=== PATIENT | female | born 1980 | race Caucasian/White ===

== ENCOUNTER → 2017-09-16 | Outpatient (REF) | payer OTHER ==
[2017-09-16 12:08] LABS: BASO % 0.5 % (0.0-1.0); EOS # 0.1 10^3/uL (0.0-0.50); EOS % 1.7 % (0.0-3.0); HEMOGLOBIN 12.2 g/dl (12.0-16.0); IMMATURE GRANULOCYTE % 0.2 % (0-0); LYMPH # 1.6 10^3/uL (1.5-4.5); LYMPH % 37.2 % (24.0-44.0); MEAN CORPUSCULAR HEMOGLOBIN 31.1 pg (27.0-33.0); MEAN CORPUSCULAR VOLUME 94.4 fl (80.0-96.0); MONO # 0.3 10^3/uL (0.0-0.8); MONO % 6.4 % (0.0-5.0); NEUTROPHILS # 2.3 10^3/uL (1.8-7.7); PLATELET COUNT, AUTOMATED 229 10^3/uL (150-450); RED BLOOD COUNT 3.92 10^6/uL (4.00-5.40); RED CELL DISTRIBUTION WIDTH 12.3 % (11.5-14.5); WHITE BLOOD COUNT 4.2 10^3/uL (4.0-10.0)
[2017-09-16 12:32] LABS: ALBUMIN 4.4 GM/DL (3.2-5.2); ALBUMIN/GLOBULIN RATIO 1.38 (1.00-1.93); ALKALINE PHOSPHATASE 51 U/L (45-117); ALT/SGPT 18 U/L (12-78); ANION GAP 7 MEQ/L (8-16); AST/SGOT 13 U/L (7-37); BILIRUBIN,TOTAL 0.4 MG/DL (0.2-1.0); BLOOD UREA NITROGEN 16 MG/DL (7-18); CALCIUM LEVEL 9.2 MG/DL (8.5-10.1); CARBON DIOXIDE LEVEL 28 MEQ/L (21-32); CHLORIDE LEVEL 103 MEQ/L (98-107); CREATININE FOR GFR 0.78 MG/DL (0.55-1.02); GLOMERULAR FILTRATION RATE > 60.0 (>60); GLUCOSE, FASTING 87 MG/DL (70-105); POTASSIUM SERUM 3.9 MEQ/L (3.5-5.1); SODIUM LEVEL 138 MEQ/L (136-145); TOTAL PROTEIN 7.6 GM/DL (6.4-8.2)
== END ==
LOC: M LABDRAW1 09:26
DX: Z51.81 Encounter for therapeutic drug level monitoring (principal); Z79.899 Other long term (current) drug therapy

== ENCOUNTER → 2018-01-22 | Outpatient (CLI) | payer OTHER ==
[2018-01-22 19:38] LABS: BASO % 0.5 % (0.0-1.0); EOS # 0.1 10^3/uL (0.0-0.50); EOS % 1.5 % (0.0-3.0); HEMATOCRIT 38.5 % (36.0-47.0); HEMOGLOBIN 13.1 g/dl (12.0-15.5); IMMATURE GRANULOCYTE % 0.2 % (0-3.0); LYMPH # 2.5 10^3/uL (1.5-4.5); LYMPH % 42.1 % (24.0-44.0); MEAN CORPUSCULAR VOLUME 93.9 fl (80.0-96.0); MONO # 0.4 10^3/uL (0.0-0.8); MONO % 6.8 % (0.0-5.0); NEUTROPHILS % 48.9 % (36.0-66.0); PLATELET COUNT, AUTOMATED 246 10^3/uL (150-450); RED CELL DISTRIBUTION WIDTH 11.9 % (11.5-14.5)
[2018-01-22 19:46] LABS: URIC ACID 5.5 MG/DL (2.6-6.0)
== END ==
LOC: M WUC 17:03
DX: M79.674 Pain in right toe(s) (principal)
CPT/HCPCS: 84550

== ENCOUNTER → 2018-08-11 | Outpatient (REF) | payer OTHER, SELFPAY ==
[2018-08-11 13:00] LABS: RHEUMATOID FACTOR QUANT < 10.0 IU/ML (<15.0)
[2018-08-11 14:03] LABS: ERYTHROCYTE SEDIMENTATION RATE 13 mm/hr (0-20)
[2018-08-14 00:07] LABS: CYCLIC CITRULLINATED PEPTIDE 6 units (0-19)
[2018-08-14 00:07] LABS: ANTINUCLEAR ANTIBODIES DIRECT Negative (Negative); Lyme Disease IgG/IgM Antibodie <0.91 ISR (0.00-0.90); Lyme Disease IgM Ab Quantitati <0.80 index (0.00-0.79)
== END ==
LOC: M LABDRAW1 11:25
DX: M25.50 Pain in unspecified joint (principal)
CPT/HCPCS: 36415

== ENCOUNTER 2019-06-05 21:37 | Emergency (ER) | payer BC ==
[~2019-06-05] VITALS: Ht 160 cm; Wt 63.6 kg
[2019-06-05 21:37] VITALS: BP 136/77
[2019-06-05] MEDS ORDERED: SUMA50TA2 (21:46)
[2019-06-05] MEDS ORDERED: TOPI25TA10 (21:46)
[2019-06-05] MEDS ORDERED: ADACEL/BOOSTRIX VACCINE (DIPHTH/PERTUSS/ACELL/TETANUS)0.5ML SYR (90715) IM ONE (22:00)
[2019-06-05] MEDS ORDERED: DERMABOND TOPICAL SKIN ADHESIVE TOP ONE (22:00)
== END 2019-06-05 22:29 | disposition home or self-care (01) ==
LOC: M ED 21:37
DX: S61.210A Laceration without foreign body of right index finger without damage to nail, initial encounter (principal); W26.8XXA Contact with other sharp object(s), not elsewhere classified, initial encounter; Y92.099 Unspecified place in other non-institutional residence as the place of occurrence of the external cause; Y93.9 Activity, unspecified; Y99.9 Unspecified external cause status; Z79.899 Other long term (current) drug therapy

== ENCOUNTER 2019-07-23 10:54 | Emergency (ER) | payer BC ==
[~2019-07-23] VITALS: Ht 152.4 cm; Wt 65.9 kg
[~2019-07-23 10:54] MED LIST: SUMA50TA2; TOPI25TA10
[2019-07-23] MEDS ORDERED: KETOROLAC 60 MG/2 ML VIAL (J1885) IM ONE (12:15)
[2019-07-23] MEDS ORDERED: BACLOFEN 10 MG TAB PO ONE (12:15)
--- NOTE | 2019-07-23 12:42 | REP ---
CT lumbar spine: 07/23/2019. Indication: Lumbar spine trauma. Comparison: None. Technique: Unenhanced axial CT images of the lumbar spine were obtained with sagittal and coronal reconstructions provided. Findings: There is no acute fracture, subluxation or dislocation. Ossification along the left L3/L4 lamina is noted. No hemorrhage or additional acute post traumatic spinal canal abnormalities are detected. The paraspinal soft tissues are unremarkable with the exception of cholelithiasis without cholecystitis. Impression: No acute post traumatic osseous injuries of the lumbar spine. Electronically Signed by Jatin Joyce DO 07/23/2019 12:34 P
[2019-07-23] MEDS ORDERED: CYCL5TAB PO (12:59)
[2019-07-23] MEDS ORDERED: KETO10TAB PO (12:59)
[2019-07-23 13:07] VITALS: BP 128/68
== END 2019-07-23 13:11 | disposition home or self-care (01) ==
LOC: EDBD 10:54 → M ED 10:54
DX: M54.5 Low back pain (principal); W01.0XXA Fall on same level from slipping, tripping and stumbling without subsequent striking against object, initial encounter; Y92.099 Unspecified place in other non-institutional residence as the place of occurrence of the external cause; Y93.9 Activity, unspecified; Y99.9 Unspecified external cause status; M51.26 Other intervertebral disc displacement, lumbar region; R51 Headache; Z79.899 Other long term (current) drug therapy
CPT/HCPCS: 72131; 96372; 99284; J1885

== ENCOUNTER → 2019-07-25 | Outpatient (CLI) | payer BC ==
[~2019-07-25] MED LIST changes: +CYCL5TAB PO; +KETO10TAB PO
--- NOTE | 2019-07-27 10:27 | REP ---
MRI lumbar spine: 07/25/2019. Indication: Lumbar radiculopathy. Comparison: None. Technique: Multiplanar short and long TR sequences of the lumbar spine were obtained without IV Gadolinium. Findings: Lumbar vertebral body alignment is within anatomical limits. New small area of focal fatty marrow is noted within the anterior aspect of S1. No worrisome marrow signal is present. The visualized spinal cord is normal. Disc desiccation and mild disc space narrowing are present at L4/L5. L1/L2, L2/L3 and L3/L4: Unremarkable. L4/L5: Diffuse disc bulge and tiny far left lateral annular fissure are present without nerve root impingement. L5/S1: Unremarkable. Impression: Degenerative sequelae of L4/L5 as described without significant spinal canal / neural foraminal narrowing. Electronically Signed by Jatin Jyoce DO 07/27/2019 10:19 A
== END ==
LOC: M RAD 10:27
PROVIDERS: ATTEND Family Medicine
DX: M51.16 Intervertebral disc disorders with radiculopathy, lumbar region (principal)

== ENCOUNTER → 2021-07-14 | Outpatient (CLI) | payer BC | LOC: M LABSMTC 09:15 | PROVIDERS: ATTEND Anesthesiology | DX: Z01.812 Encounter for preprocedural laboratory examination (principal); Z20.822 Contact with and (suspected) exposure to COVID-19 ==

== ENCOUNTER 2021-07-19 08:31 | Day surgery (SDC) | payer BC ==
[~2021-07-19] VITALS: Ht 160 cm; Wt 54.5 kg
[~2021-07-19 08:31] MED LIST changes: +BUPIVACAINE HCL 0.5% 30 ML VIAL As Ordered ONE; +LIDOCAINE 1% MDV 20ML VIAL As Ordered ONE; +LR 1,000 ML IV ONE; +ceFAZolin SOD 2 GM in IV 1 EA IV ONE; +dexameTHASONE 4 MG/ML 1ML VIAL (J1100 PER 1MG) As Ordered ONE
--- OUTSIDE RECORDS SUMMARY | 2021-07-19 08:35 | CCD | Continuity of Care Document ---
Author Author Berenice ROSA DPM Organization Unknown Address [address] [place] [address], [address] [place] [address] Phone [phone] Care Team Providers Care Government Property Inspector Name Role Phone Jarocho Stinson M.D. [phone] Problems Active Problems Provider Date Acquired deformity of toe Sujit Rosa DPM Onset: 2017 Pain in limb Sujit Rosa DPM Onset: 05/14/2021 Acquired hallux rigidus Sujit Rosa DPM Onset: 05/14/20 21 Social History Type Date Description Comments Sex Unknown ETOH Use Rarely consumes alcohol Tobacco Use Start: Unknown Patient has never smoked Allergies and adverse reactions Description No Known Drug Allergies Medications Active Medications SIG Qnty Indications Ordering Provide r Date Naproxen 500mg Tablets Take 1 Tablet By Mouth Twice A Day With Food 60tabs Sujit Rosa DPM 02/11/2018 Topiramate Unknown Sumatriptan Succinate Unknown 00 Medications Administered in Office Medication SIG Qnty Indications Ordering Provider Date Inject Triamcinolone Acetonide 10 ML, ND C 8815-7742-55 Injection Sujit alcaraz DPM 05/04/2021 Inject Dexamthosone Phosphate 43779-543- 30 Injection Sujit Rosa DPM 021 Immunizations Description No Information Available Vital Signs Date Vital Result Comment 06/14/2021 3:30pm Height 63 inches 5'3" Weight 176.00 lb BP Systolic 124 mmHg BP Diastolic 64 mmHg Heart Rate 62 /min BMI (Body Mass Index) 31.2 kg/m2 05/04/2021 9:09am Height 63 inches 5'3" Weight 174.00 lb BP Systolic 128 mmHg BP Diastolic 96 mmHg Heart Rate 90 /min BMI (Body Mass Index) 30.8 kg/m2 Results Description No Information Available Procedures Date Code Description Status 06/08/2021 55623 Office/Outpatient Established SF MDM 10-19 Min Completed 05/04/2021 79298 Office/Outpatient Established Lo w MDM 20-29 Min Completed 05/04/2021 60103 X-Ray Foot Complete Completed 05/04/2021 Inject/Drain Joint/Bursa Interme diate Completed Medical Devices Description No Information Available Encounters Type Date Location Provider Dx Diagnosis Office Visit 06/08/2021 3:45p [facility] Sujit Rosa DPM M20.5x9 Other deformities of toe(s) (acquired), unspecified foot M20.20 Hallux rigidus, unspecified foot Office Visit 05/04/2021 9:15a [facility] Sujit Rosa DPM M20.5x1 Other deformities of toe(s) (acquired), right foot M20.5x1 Other deformities of toe(s) (acquired), right foot M79.674 Pain in right toe(s) Assessments Date Code Description Provider 06/08/2021 M20.5x9 Other deformities of toe(s) (acq uired), unspecified foot Sujit Rosa DPM 06/08/2021 M20.20 Hallux rigidus, unspecified foot Sujit Rosa DPM 05/04/2021 M20.5x1 Other deformities of toe(s) (acq uired), right foot Sujit Rosa DPM 05/04/2021 M20.5x1 Other deformities of toe(s) (acq uired), right foot Sujit Rosa DPM 05/04/2021 M79.674 Pain in right toe(s) Sujit mcleod DPM Plan of Treatment Future Appointment(s):* 09/14/2021 3:45 pm - Sujit Rosa DPM at [facility] Functional Status Description No Information Available Mental Status Description No Information Available Referrals Description No Information Available
--- OUTSIDE RECORDS SUMMARY | 2021-07-19 08:35 | CCD | Continuity of Care Document ---
Author Author Berenice AMADO Organization Unknown Address [facility] [place] [address] Phone [phone] Care Team Providers Care Track Manager Name Role Phone Jarocho Stinson MD [facility] [phone] Asaf L[facility] [employer] [phone] Problems Description No Information Available Social History Type Date Description Comments Sex Unknown ETOH Use Denies alcohol use Tobacco Use Start: Unknown Patient has never smoked Smoking Status Reviewed: 08/24/20 Patient has never smoked Allergies, Adverse Reactions, Alerts Description No Known Drug Allergies Medications Active Medications SIG Qnty Indications Ordering Provide r Date Sumatriptan Succinate 50mg Tablets prn Unknown Mucinex Unknown Claritin Unknown Immunizations Description No Information Available Vital Signs Date Vital Result Comment 06/20/2021 5:42pm BP Systolic 125 mmHg BP Diastolic 86 mmHg Heart Rate 67 /min Respiratory Rate 16 /min O2 % BldC Oximetry 97 % Body Temperature 97.1 F Weight 175.00 lb Height 63 inches 5'3" BMI (Body Mass Index) 31.0 kg/m2 Pain Level 0 08/24/2020 6:01pm BP Systolic 112 mmHg BP Diastolic 79 mmHg Heart Rate 88 /min Respiratory Rate 16 /min O2 % BldC Oximetry 99 % Body Temperature 98.9 F Weight 155.00 lb Pain Level 3 Results Description No Information Available Procedures Date Code Description Status 06/20/2021 65326 Office/Outpatient Established Lo w MDM 20-29 Min Completed Medical Devices Description No Information Available Encounters Type Date Location Provider Dx Diagnosis Office Visit 06/20/2021 3:25p Main Office ANTONIO Cosme J06 .9 Acute upper respiratory infection, unspecified Z20.828 Contact w and exposure to ot h viral communicable diseases Assessments Date Code Description Provider 06/20/2021 J06.9 Acute upper respiratory infectio n, unspecified ANTONIO Cosme 06/20/2021 Z20.828 Contact with and (wright spected) exposure to other viral communicable diseases ANTONIO Cosme Plan of Treatment No Information Available Functional Status Description No Information Available Mental Status Description No Information Available Referrals Description No Information Available
--- OUTSIDE RECORDS SUMMARY | 2021-07-19 08:35 | CCD ---
Author Author [facility] Organization [facility] Address Unknown Phone Unavailable Care Team Providers Care Supervisor Doping Name Role Phone Maring, González PA Unavailable Unavailable Maring, González PA Unavailable Unavailable Maring, González PA Unavailable Unavailable Maring, González PA Unavailable Unavailable Maring, González PA Unavailable Unavailable Maring, González PA Unavailable Unavailable Maring, González PA Unavailable Unavailable Maring, González PA Unavailable Unavailable Maring, González PA Unavailable Unavailable Maring, González PA Unavailable Unavailable Maring, González PA Unavailable Unavailable Maring, González PA Unavailable Unavailable Maring, González PA Unavailable Unavailable Maring, González PA Unavailable Unavailable Maring, González PA Unavailable Unavailable Maring, González PA Unavailable Unavailable LETTIERE, A YONATHAN PA Unavailable Unavailable LETTIERE, A YONATHAN PA Unavailable Unavailable LETTIERE, A YONATHAN PA Unavailable Unavailable LETTIERE, A YONATHAN PA Unavailable Unavailable LETTIERE, A YONATHAN PA Unavailable Unavailable LETTIERE, A YONATHAN PA Unavailable Unavailable LETTIERE, A YONATHAN PA Unavailable Unavailable LETTIERE, A YONATHAN PA Unavailable Unavailable LETTIERE, A YONATHAN PA Unavailable Unavailable LETTIERE, A YONATHAN PA Unavailable Unavailable LETTIERE, A YONATHAN PA Unavailable Unavailable LETTIERE, A YONATHAN PA Unavailable Unavailable LETTIERE, A YONATHAN PA Unavailable Unavailable LETTIERE, A YONATHAN PA Unavailable Unavailable LETTIERE, A YONATHAN PA Unavailable Unavailable LETTIERE, A YONATHAN PA Unavailable Unavailable LETTIERE, A YONATHAN PA Unavailable Unavailable LETTIERE, A YONATHAN PA Unavailable Unavailable LETTIERE, A YONATHAN PA Unavailable Unavailable LETTIERE, A YONATHAN PA Unavailable Unavailable LETTIERE, A YONATHAN PA Unavailable Unavailable LETTIERE, A YONATHAN PA Unavailable Unavailable LETTIERE, A YONATHAN PA Unavailable Unavailable LETTIERE, A YONATHAN PA Unavailable Unavailable LETTIERE, A YONATHAN PA Unavailable Unavailable LETTIERE, A YONATHAN PA Unavailable Unavailable LETTIERE, A YONATHAN PA Unavailable Unavailable LETTIERE, A YONATHAN PA Unavailable Unavailable LETTIERE, A YONATHAN PA Unavailable Unavailable LETTIERE, A YONATHAN PA Unavailable Unavailable LETTIERE, A YONATHAN PA Unavailable Unavailable Uyen ROSA DPM Unavailable Unavailable MAJAKUyen DPM Unavailable Unavailable MAJAKUyen DPM Unavailable Unavailable MAJAKUyen DPM Unavailable Unavailable MAJAKUyen DPM Unavailable Unavailable MAJAKUyen DPM Unavailable Unavailable MAJAKUyen DPM Unavailable Unavailable MAJAKUyen DPM Unavailable Unavailable MAJAKUyen DPM Unavailable Unavailable MAJAKUyen DPM Unavailable Unavailable MAJAKUyen DPM Unavailable Unavailable MAJAKUyen DPM Unavailable Unavailable MAJUyen CHUNG DPM Unavailable Unavailable Uyen ROSA DPM Unavailable Unavailable MAJyUen CHUNG DPM Unavailable Unavailable MAJUyen CHUNG DPM Unavailable Unavailable MAJUyen CHUNG DPM Unavailable Unavailable MAJAKUyen DPM Unavailable Unavailable MAJAKUyen DPM Unavailable Unavailable MAJUyen CHUNG DPM Unavailable Unavailable MAJAKUyen DPM Unavailable Unavailable MAJUyen CHUNG DPM Unavailable Unavailable MAJUyen CHUNG DPM Unavailable Unavailable Uyen ROSA DPM Unavailable Unavailable MAJAKUyen DPM Unavailable Unavailable MAJAKUyen DPM Unavailable Unavailable MAJUyen CHUNG DPM Unavailable Unavailable MAJAKUyen DPM Unavailable Unavailable MAJUyen CHNUG DPM Unavailable Unavailable MAJAKUyen DPM Unavailable Unavailable MAJAKUyen DPM Unavailable Unavailable MAJAKUyen DPM Unavailable Unavailable Re-disclosure Warning The records that you are about to access may contain information from federally-assisted alcohol or drug abuse programs. If such information is present, then the following federally mandated warning applies: This information has been disclosed to you from records protected by federal confidentiality rules (42 CFR part 2). The federal rules prohibit you from making any further disclosure of this information unless further disclosure is expressly permitted by the written consent of the person to whom it pertains or as otherwise permitted by 42 CFR part 2. A general authorization for the release of medical or other information is NOT sufficient for this purpose. The Federal rules restrict any use of the information to criminally investigate or prosecute any alcohol or drug abuse patient.The records that you are about to access may contain highly sensitive health information, the redisclosure of which is protected by Article 27-F of the [facility] Public Health law. If you continue you may have access to information: Regarding HIV / AIDS; Provided by facilities licensed or operated by the [facility] Office of Mental Health; or Provided by the [facility] Office for People With Developmental Disabilities. If such information is present, then the following [facility] mandated warning applies: This information has been disclosed to you from confidential records which are protected by state law. State law prohibits you from making any further disclosure of this information without the specific written consent of the person to whom it pertains, or as otherwise permitted by law. Any unauthorized further disclosure in violation of state law may result in a fine or snf sentence or both. A general authorization for the release of medical or other information is NOT sufficient authorization for further disc losure. Family History Family Member Name Family Member Gender Family Member Status Date o f Status Description Data Source(s) Unknown Male Problem [facility] ([facility] Unknown Unknown Problem [facility] ([facility]) Unknown Unknown Problem [facility] ([facility] Encounters Encounter Providers Location Date Indications Data Source(s ) Outpatient Attender: YONATHAN escobar 06/20/2021 03:25:00 PM EDT [facility] ([facility], [facility]) Outpatient Attender: VICTORIANO ROSA [facility] 02/2021 03:30:00 PM EDT [facility] ([facility] Outpatient Attender: VICTORIANO ROSA [facility] 05/12 03:45:00 PM EDT [facility] ([facility] Outpatient Attender: VICTORIANO ROSA [facility] 04/10 09:15:00 AM EDT [facility] ([facility] Outpatient Attender: González ALVAREZ 12/28/19 09:10:02 AM EDT - 12/27/2020 09:58:20 AM EDT [facility] ([facility] ) Outpatient Attender: YONATHAN escobar 08/24/2020 04:30:00 PM EST [facility] ([facility], [facility]) Medications Medication Brand Name Start Date Product Form Dose Route Admi nistrative Instructions Pharmacy Instructions Status Indications Reaction Description Data Source(s) Inject Triamcinolone Acetonide 10 ML, NDC 5012-0728-86 05/04/2021 12:00:00 AM EDT completed [facility] ([facility] Medication administered onsite Inject Dexamthosone Phosphate 50436-190-63 05/04/2021 12:00:00 A M EDT completed [facility] ([facility] Medication administered onsite Insurance Providers Payer name Policy type / Coverage type Policy ID Covered alliance party ID Covered alliance party's relationship to burch Policy Burch Plan Information [facility] COMMUNITY PLAN [facility] [id number] SP [id number] [facility] [id number] SP [id number] [facility] PL[facility] [id number] SP [id number] BC/BS [facility] [id number] [facility] Medicaid P [id number] S [id number] Managed Care - Community Plan [facility] P [id number] S [id number] Managed Care - Community Plan United [employer] S [id number] S [id number] Medicaid P [id number] S [id number] Managed Care - Community Plan United [employer] P [id number] S [id number] D [facility] CHP/Essential Plan P [id number] S [id number] [facility] Essential Plan P [id number] S [id number] Blue Cross Blue Shield P [id number] SPOUSE [id number] [employer] Blue Cross and Blue Shield - [place] Blue Cross/B lue Shield [id number] Spouse [id number] RPR- Needs Payer Match [id number] Spouse [id number] Medicaid P [id number] S [id number] [facility] Maintenance Organization (O) [id number] Self [id number] [facility] Health Maintenance Organization (O) [id number] Self [id number] [facility] Community Plan Medigap Part B [id number] Self [facility]) P [id number] S [id number] [employer] BCBS P [id number] S [id number] HMO BLUE P [id number] S [id number] BCBS [place] PPO 302/307 [id number] BCBS Federal P [id number] S [id number] [employer] BCBS B [id number] O [id number] [employer] BCBS B [id number] P [id number] BCBS [place] PPO 302/307 [id number] BCBS [place] PPO 302/307 [id number] SP [id number] [facility] Essential Plan P [id number] S [id number] SELF PAY ONLY SP [facility] O [id number] S [id number] [facility] [id number] SP [id number] [facility] Hmo Commercial [id number] Self 1 [id number] [facility] [id number] Self 1 [id number] [facility] Commercial [id number] Self [id number] [facility] Health Maintenance Organization (HMO) [id number] Self [id number] Problems, Conditions, and Diagnoses Code Display Name Description Problem Type Effective Dates Data Source(s) M20.20 Acquired hallux rigidus Acquired hallux rigidus Proble m 05/14/2021 12:00:00 AM EDT [facility] ([facility] M79.674 Pain in limb Pain in limb Problem 05/14/2021 12:00:00 A M EDT [facility] ([facility] Surgeries/Procedures Procedure Description Date Indications Data Source(s) OFFICE OUTPATIENT VISIT 15 MINUTES 06/20/2021 12:00:00 AM EDT [facility] ([facility], [facility]) OFFICE OUTPATIENT VISIT 15 MINUTES 06/14/2021 12:00:00 AM EDT [facility] ([facility] OFFICE OUTPATIENT VISIT 10 MINUTES 06/08/2021 12:00:00 AM EDT [facility] ([facility] ARTHROCENTESIS ASPIR&/INJECTION INTERM JT/BURSA 2020 12:00:00 AM EDT [facility] ([facility] RADEX FOOT COMPLETE MINIMUM 3 VIEWS 05/04/2021 12:00:0 0 AM EDT [facility] ([facility] OFFICE OUTPATIENT VISIT 15 MINUTES 05/04/2021 12:00:00 AM EDT [facility] ([facility] Results ID Date Data Source [id number] 07/14/2021 12:00:00 AM EDT [facility] Name Value Range Interpretation Code Description Data Vicenta rce(s) Supporting Document(s) SARS-CoV2 Rapid Antigen Negative [facility] This lab was ordered by [facility] and reported by [facility]. ID Date Data Source [id number] 07/04/2021 12:00:00 AM EDT [facility] Name Value Range Interpretation Code Description Data Vicenta rce(s) Supporting Document(s) SARS-CoV2 Rapid Antigen Negative [facility] This lab was ordered by [facility] and reported by [facility]. ID Date Data Source [id number] 06/30/2021 12:00:00 AM EDT [facility] Name Value Range Interpretation Code Description Data Vicenta rce(s) Supporting Document(s) SARS-CoV2 Rapid Antigen Negative [facility] This lab was ordered by [facility] and reported by [facility]. ID Date Data Source [id number] 06/20/2021 12:00:00 AM EDT [facility] Name Value Range Interpretation Code Description Data Vicenta rce(s) Supporting Document(s) SARS-CoV2 Rapid Antigen Negative [facility] This lab was ordered by [facility] and reported by [facility]. ID Date Data Source [id number] 06/13/2021 12:00:00 AM EDT [facility] Name Value Range Interpretation Code Description Data Vicenta rce(s) Supporting Document(s) SARS-CoV2 Rapid Antigen Negative [facility] This lab was ordered by [facility] and reported by [facility]. ID Date Data Source [id number] 06/08/2021 12:00:00 AM EDT [facility] Name Value Range Interpretation Code Description Data Vicenta rce(s) Supporting Document(s) SARS-CoV2 Rapid Antigen Negative [facility] This lab was ordered by [facility] and reported by [facility]. ID Date Data Source [id number] 12/28/2020 07:55:00 PM EDT [employer] [facility] Name Value Range Interpretation Code Description Data Vicenta rce(s) Supporting Document(s) COVID-19 RT-PCR MEDICAL DIRECTOR OF HOSPICE SWAB Not Detected Not Detected [facility] A not detected (negative) test result fo r this test means that SARS-CoV-2 RNA was not present in the specimen above the limit ofdetection. Laboratory test results should always be considered in thecontext of clinical observations and epidemiological data in making afinal diagnosis and patient management decisions. Results will bereported to government agencies as required.This test has received Emergency Use Authorization (EUA). We will continue to follow federal and state requirements for COVID-19 reporting. This test has been authorized only for the detection of RNAfrom SARS-CoV-2 virus and diagnosis of SARS-CoV-2 virus infection, notfor any other viruses or pathogens. This test is only authorized for the duration of the declaration that circumstances exist justifying the authorization of the emergency use of in vitro diagnostic tests for detection of SARS-CoV-2 virus and/or diagnosis of SARS-CoV-2 virusinfection under section 564(b)(1) of the Act, 21 U.S.C. section 360bbb-3(b)(1), unless the authorization is terminated or revoked sooner. We will continue to follow federal and state requirements for both notification of results and any confirmatory testing that is required by another agency. This test was developed and its performance characteristics determined by [facility] and verified at [facility]. It has not been cleared or approved by the U.S. Food and Drug Administration for diagnostic use. This test has been authorized by FDA under an EUA for use by authorized laboratories. Results should be used in conjunction with clinical findings, and should not form the sole basis for a diagnosis or treatment decision. Methods: SARS-CoV-2 Multiplex RT-PCR Assay ID Date Data Source [id number] 12/27/2020 09:30:00 AM EDT [facility] Name Value Range Interpretation Code Description Data Vicenta rce(s) Supporting Document(s) SARS-CoV-2 (COVID-19) N gene [Presence] in Respiratory specimen by JOSELINE with probe detection NEGATIVE [facility] This lab was ordered by [facility] and reported by [facility]. ID Date Data Source [id number] 12/27/2020 12:00:00 AM EDT [facility] Name Value Range Interpretation Code Description Data Vicenta rce(s) Supporting Document(s) Carestart Rapid COVID Antigen Test Negative [facility] This lab was reported by [facility] jayson. ID Date Data Source [id number] 09/04/2020 12:00:00 AM EST [facility] Name Value Range Interpretation Code Description Data Vicenta rce(s) Supporting Document(s) SARS coronavirus 2 RNA [Presence] in Res piratory specimen by JOSELINE with probe detection [facility] This lab was ordered by [facility] and reported by [facility]. ID Date Data Source [id number] 09/04/2020 12:00:00 AM EST [facility] Name Value Range Interpretation Code Description Data Vicenta rce(s) Supporting Document(s) Carestart Rapid COVID Antigen Test [facility] This lab was reported by [facility] jayson. ID Date Data Source [id number] 08/24/2020 12:00:00 AM EST [facility] Name Value Range Interpretation Code Description Data Vicenta rce(s) Supporting Document(s) SARS coronavirus 2 Ag [facility] This lab was ordered by [facility] and reported by [facility]. Procedure Social History Code Duration Value Status Description Data Source(s ) Smoking 08/24/2020 12:00:00 AM EST Patient has never smoked co mpleted Patient has never smoked [facility] ([facility]) Vital Signs ID Date Data Source UNK Name Value Range Interpretation Code Description Data Source(s) Heart rate 67 /min 67 /min [facility] ([facility]) Systolic blood pressure 125 mm[Hg] 125 mm[Hg] M EDENT ([facility]) Respiratory rate 16 /min 16 /min [facility] ( [facility]) Body temperature 97.1 [degF] 97.1 [degF] [facility] ([facility]) Body weight 175.00 [lb_av] 175.00 [lb_av] MEDEN T ([facility]) Oxygen saturation in Arterial blood by Pulse oximetry 97 % 97 % [facility] ([facility]) Body height 63 [in_i] 63 [in_i] [facility] ([facility]) 5'3" Body mass index (BMI) [Ratio] 31.0 kg/m2 31.0 k g/m2 [facility] ([facility]) Diastolic blood pressure 86 mm[Hg] 86 mm[Hg] [facility] ([facility]) Body mass index (BMI) [Ratio] 31.2 kg/m2 31.2 k g/m2 [facility] ([facility] Body height 63 [in_i] 63 [in_i] [facility] ([facility] 5'3" Body weight 176.00 [lb_av] 176.00 [lb_av] MEDEN T ([facility] Systolic blood pressure 124 mm[Hg] 124 mm[Hg] EDENT ([facility] Diastolic blood pressure 64 mm[Hg] 64 mm[Hg] [facility] ([facility] Heart rate 62 /min 62 /min [facility] ([facility] Body height 63 [in_i] 63 [in_i] [facility] ([facility] 5'3" Body weight 174.00 [lb_av] 174.00 [lb_av] MEDEN T ([facility] Systolic blood pressure 128 mm[Hg] 128 mm[Hg] M EDENT ([facility] Diastolic blood pressure 96 mm[Hg] 96 mm[Hg] [facility] ([facility] Heart rate 90 /min 90 /min [facility] ([facility] Body mass index (BMI) [Ratio] 30.8 kg/m2 30.8 k g/m2 [facility] ([facility] Respiratory rate 16 /min 16 /min [facility] ( [facility]) Diastolic blood pressure 79 mm[Hg] 79 mm[Hg] [facility] Heart rate 88 /min 88 /min [facility] ([facility], [facility]) Systolic blood pressure 112 mm[Hg] 112 mm[Hg] M EDENT ([facility], [facility]) Oxygen saturation in Arterial blood by Pulse oximetry 99 % 99 % [facility] ([facility], [facility]) Body temperature 98.9 [degF] 98.9 [degF] [facility] ([facility], [facility]) Body weight 155.00 [lb_av] 155.00 [lb_av] MEDEN T ([facility], [facility])
--- OUTSIDE RECORDS SUMMARY | 2021-07-19 08:35 | CCD | Continuity of Care Document ---
Author Author Berenice ROSA DPM Organization Unknown Address [address] [place] [address], [address] [place] [address] Phone [phone] Care Team Providers Care Zone Supervisor Firearms Name Role Phone Jarocho Stinson M.D. [phone] Problems Active Problems Provider Date Acquired deformity [...] Inject Triamcinolone Acetonide 10 ML, ND C 7954-9274-61 Injection Sujit alcaraz DPM 05/04/2021 Inject Dexamthosone Phosphate 16028-199- 30 Injection Sujit Rosa DPM 021 Immunizations Description No Information Available Vital Signs Date Vital Result Comment 05/04/2021 9:09am Height 63 inches 5'3" Weight 174.00 lb BP Systolic 128 mmHg BP Diastolic 96 mmHg Heart Rate 90 /min BMI (Body Mass Index) 30.8 kg/m2 02/11/2018 9:04am Height 63 inches 5'3" Weight 140.00 lb BP Systolic 112 mmHg BP Diastolic 74 mmHg Heart Rate 84 /min BMI (Body Mass Index) 24.8 kg/m2 Results Description No Information Available Procedures Date Code Description Status 06/08/2021 63034 Office/Outpatient Established SF MDM 10-19 Min Completed 05/04/2021 34665 Office/Outpatient Established Lo w MDM 20-29 Min Completed 05/04/2021 75121 X-Ray Foot Complete Completed 05/04/2021 Inject/Drain Joint/Bursa Interme diate Completed Medical Devices Description No Information Available Encounters Type Date Location Provider Dx Diagnosis Office Visit 06/08/2021 3:45p [place] [facility] Sujit Rosa DPM M20.5x9 Other deformities of toe(s) (acquired), unspecified foot M20.20 Hallux rigidus, unspecified foot Office Visit 05/04/2021 9:15a [place] [facility] Sujit Rosa DPM M20.5x1 Other deformities [...] 3:45 pm - Sujit Rosa DPM at [place] [facility] Functional Status Description No Information Available Mental Status Description No Information Available Referrals Description No Information Available
--- OUTSIDE RECORDS SUMMARY | 2021-07-19 08:35 | CCD | Continuity of Care Document ---
Author Author Berenice ROSA DPM Organization Unknown Address [address] [place] [address], [address] [place] [address] Phone [phone] Care Team Providers Care Central Office Inspector Name Role Phone Jarocho Stinson M.D. [phone] Problems Active Problems Provider Date Acquired deformity [...] Inject Triamcinolone Acetonide 10 ML, ND C 1961-2523-85 Injection Sujit alcaraz DPM 05/04/2021 Inject Dexamthosone Phosphate 65477-474- 30 Injection Sujit Rosa DPM 021 Immunizations [...] Available Procedures Date Code Description Status 06/08/2021 19765 Office/Outpatient Established SF MDM 10-19 Min Completed 05/04/2021 08377 Office/Outpatient Established Lo w MDM 20-29 Min Completed 05/04/2021 09108 X-Ray Foot Complete Completed 05/04/2021 Inject/Drain Joint/Bursa Interme diate Completed Medical Devices Description No Information Available Encounters Type Date Location Provider Dx Diagnosis Office Visit 06/08/2021 3:45p [place] [facility] Sujit Rosa DPM M20.5x9 Other deformities of toe(s) (acquired), unspecified foot M20.20 Hallux rigidus, unspecified foot Office Visit 05/04/2021 9:15a [place] [facility] Sujit Rosa DPM M20.5x1 Other deformities [...] 3:45 pm - Sujit Rosa DPM at [place] [facility] Functional Status Description No Information Available Mental Status Description No Information Available Referrals Description No Information Available
--- OUTSIDE RECORDS SUMMARY | 2021-07-19 08:35 | CCD | Continuity of Care Document ---
Author Author Berenice AMADO Organization Unknown Address [facility] [place] [address] Phone [phone] Care Team Providers Care Traffic Operator Name Role Phone Jarocho Stinson MD AUTM [phone] As[facility] [employer] AUTM [phone] Problems Description No Information Available Social History [...] Available Procedures Date Code Description Status 06/20/2021 81658 Office/Outpatient Established Lo w MDM 20-29 Min [...]
--- OUTSIDE RECORDS SUMMARY | 2021-07-19 08:35 | CCD | Continuity of Care Document ---
Author Author Berenice ROSA DPM Organization Unknown Address [address] [place] [address], [address] [place] [address] Phone [phone] Care Team Providers Care Beef Lugger Name Role Phone Jarocho Stinson M.D. [phone] Problems Active Problems Provider Date Acquired deformity [...] Inject Triamcinolone Acetonide 10 ML, ND C 6433-4422-07 Injection Sujit alcaraz DPM 05/04/2021 Inject Dexamthosone Phosphate 35559-202- 30 Injection Sujit Rosa DPM 021 Immunizations [...] Information Available Procedures Date Code Description Status 05/04/2021 39412 Office/Outpatient Established Lo w MDM 20-29 Min Completed 05/04/2021 34195 X-Ray Foot Complete Completed 05/04/2021 40727 Inject/Drain Joint/Bursa Interme diate Completed Medical Devices Description No Information Available Encounters Type Date Location Provider Dx Diagnosis Office Visit 05/04/2021 9:15a [place] [facility] Sujit Rosa DPM M20.5x1 Other deformities of toe(s) (acquired), right foot M20.5x1 Other deformities of toe(s) (acquired), right foot M79.674 Pain in right toe(s) Assessments Date Code Description Provider 05/04/2021 M20.5x1 Other deformities of toe(s) (acq uired), right foot Sujit Rosa DPM 05/04/2021 M20.5x1 Other deformities of toe(s) (acq uired), right foot Sujit Rosa DPM 05/04/2021 M79.674 Pain in right toe(s) Sujit mcleod DPM Plan of Treatment Future Appointment(s):* 09/14/2021 3:45 pm - Sujit Rosa DPM at [facility] Functional Status Description No Information Available Mental Status Description No Information Available Referrals Description No Information Available
--- OUTSIDE RECORDS SUMMARY | 2021-07-19 08:35 | CCD | Continuity of Care Document ---
Author Author Berenice PEREZ DPM Organization Unknown Address [address] [place] [address], [address] [place] [address] Phone [phone] Care Team Providers Care Human Resources Team Member Name Role Phone Jarocho Stinson M.D. 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 Social History Type Date Description Comments Sex Unknown ETOH Use Rarely consumes alcohol Tobacco Use Start: Unknown Patient has never smoked Allergies, Adverse Reactions, Alerts Description No Known Drug Allergies Medications Active Medications SIG Qnty Indications Ordering Provide r Date Naproxen 500mg Tablets Take 1 Tablet By Mouth Twice A Day With Food 60tabs Sujit Perez DPM 02/11/2018 Topiramate Unknown Sumatriptan Succinate Unknown Immunizations Description No Information Available Vital [...] kg/m2 Results Description No Information Available Procedures Description No Information Available Medical Devices Description No Information Available Encounters Description No Information Available Assessments Description No Information Available Plan of Treatment Future Appointment(s):* 06/08/2021 3:45 pm - Sujit Perez DPM at [place] [facility] Functional Status Description No Information Available Mental Status Description No Information Available Referrals Description No Information Available
--- OUTSIDE RECORDS SUMMARY | 2021-07-19 08:35 | CCD | Continuity of Care Document ---
Author Author Berenice ROSA DPM Organization Unknown Address [address] [place] [address], [address] [place] [address] Phone [phone] Care Team Providers Care Floor Scraper Name Role Phone Jarocho Stinson M.D. [phone] Problems Active Problems Provider Date Acquired deformity of toe Sujit Rosa DPM Onset: 2017 Social History Type Date [...] DPM 02/11/2018 Topiramate Unknown Sumatriptan Succinate Unknown Medications Administered in Office Medication SIG Qnty Indications Ordering Provider Date Inject Triamcinolone Acetonide 10 ML, ND C 6981-5087-17 Injection Sujit alcaraz DPM 05/04/2021 Inject Dexamthosone Phosphate 36514-153- 30 Injection Sujit Rosa DPM 021 Immunizations [...] Available Procedures Date Code Description Status 05/04/2021 28533 Office/Outpatient Established Lo w MDM 20-29 Min Completed 05/04/2021 Inject/Drain Joint/Bursa Interme diate Completed Medical Devices Description No Information Available Encounters Type Date Location Provider Dx Diagnosis Office Visit 05/04/2021 9:15a [place] [facility] Sujit Rosa DPM M20.5x1 Other deformities of toe(s) (acquired), right foot M79.674 Pain in right toe(s) Assessments Date Code Description Provider 05/04/2021 M20.5x1 Other deformities of toe(s) (acq uired), right foot Sujit Rosa DPM 05/04/2021 M79.674 Pain in right toe(s) Sujit mcleod DPM Plan of Treatment Future Appointment(s):* 06/08/2021 3:45 pm - Sujit Rosa DPM at [facility] Functional Status Description No Information Available Mental Status Description No Information Available Referrals Description No Information Available
[2021-07-19] MEDS ORDERED: MIDAZOLAM INJ 2MG/2ML VIAL (J2250 PER 1MG) As Ordered ONE (10:23)
[2021-07-19] MEDS ORDERED: KETOROLAC 60MG 2ML VIAL As Ordered ONE (10:23)
[2021-07-19] MEDS ORDERED: propofoL 200 MG/20 ML VIAL As Ordered ONE ×2 (10:23→13:01)
[2021-07-19] MEDS ORDERED: dexameTHASONE 4 MG/ML 1ML VIAL (J1100 PER 1MG) As Ordered ONE (10:23)
[2021-07-19] MEDS ORDERED: ONDANSETRON 4MG/2ML VIAL As Ordered ONE (10:23)
[2021-07-19] MEDS ORDERED: fentaNYL 100 MCG/2 ML INJECTION (J3010) As Ordered ONE (10:23)
[2021-07-19] MEDS ORDERED: LIDOCAINE 2% 100MG/5ML SDV (FOR ANES.) As Ordered ONE (10:23)
[2021-07-19] MEDS ORDERED: HYDR-3713 PO (13:15)
[2021-07-19 14:11] VITALS: BP 143/87
--- NOTE | 2021-07-19 14:42 | RO ---
OPERATIVE NOTE DATE OF OPERATION: 07/19/2021 PREOPERATIVE DIAGNOSIS: Right foot hallux limitus. POSTOPERATIVE DIAGNOSIS: Right foot hallux limitus. PROCEDURE: Right 1st metatarsophalangeal cheilectomy. SURGEON: Dr. Sujit Perez [place]: ANESTHESIA: Monitored anesthesia care. Preoperative injection of 16 mL of 1:1 mixture of 1% lidocaine plain, 0.5% Marcaine plain. ESTIMATED BLOOD LOSS: Minimal. MATERIALS: Vicryl 3-0 and 4-0 and nylon 4-0 INJECTABLES: Decadron 1 mL, 4mg/mL. COMPLICATIONS: None. CONDITION: Stable. Ms. Lacey is a 40-year-old female who presented to [facility] with a painful bunion to the right foot. She presents today for surgical correction. Patient's side and site were identified and marked in the preoperative area. Consent was reviewed and obtained. Risks, complications, and alternatives to the procedure were explained to the patient in detail. All questions were answered. DESCRIPTION OF PROCEDURE: Patient was brought to the operating room and placed on the operating table in the supine position. Monitored anesthesia care was delivered by the anesthesia team. A preoperative injection of 16 mL of 1:1 mixture of 1% lidocaine plain, 0.5% plain were injected in the right foot. The right foot was prepped and draped in the normal sterile fashion. A tourniquet was applied to the ankle and inflated to 250 mmHg. Dorsal incision was made over the metatarsophalangeal joint and carried through with a #15 blade. A linear capsulotomy was performed, exposing the metatarsal head. The dorsal prominence was noted, and this was removed with a sagittal saw and smoothed with a rasp. Site was irrigated with normal saline. Capsule repair was performed with 3-0 Vicryl. Subcutaneous tissues were closed with 4-0 Vicryl and skin closed with 4-0 nylon. Sterile dressing was applied. Tourniquet was deflated. Patient was brought to PACU with vital signs stable and neurovascular status intact. She will be weightbearing as tolerated and followup in our office in 2 days.
== END 2021-07-19 14:15 | disposition home or self-care (01) ==
LOC: M SDC 08:31
PROVIDERS: ATTEND Podiatrist Foot & Ankle Surgery
DX: M20.21 Hallux rigidus, right foot (principal); G43.909 Migraine, unspecified, not intractable, without status migrainosus; Z79.899 Other long term (current) drug therapy
CPT/HCPCS: 28289; 88300; J0690; J1100; J1885; J2250; J2405; J3010